=== PATIENT | male | born 1975 | race African-American/Black ===

== ENCOUNTER 2017-09-22 15:08 | Inpatient (IN) | payer OTHER ==
[2017-09-22 16:28] VITALS: BMI 25.8
--- NOTE | 2017-09-22 17:44 | HP ---
CIWA Score - CIWA Score Nausea/Vomitin-No Nausea/No Vomiting Muscle Tremors: 4-Moderate,w/Arms Extend Anxiety: 4-Mod. Anxious/Guarded Agitation: 4-Moderately Restless Paroxysmal Sweats: 3 Orientation: 0-Oriented Tacttile Disturbances: 0-None Auditory Disturbances: 0-None Visual Disturbances: 0-None Headache: 0-None Present CIWA-Ar Total Score: 15 Admission ROS BHS - HPI Chief Complaint: I am here for detox and rehab. Allergies/Adverse Reactions: Allergies Allergy/AdvReac Type Severity Reaction Status Date / Time No Known Allergies Allergy Verified 09/22/17 17:32 History of Present Illness: pt is a 42yr old male with a history of alcohol dependence seeking detox for treatment. Exam Limitations: No Limitations - Ebola screening Have you traveled outside of the country in the last 21 days: No Have you had contact with anyone from an Ebola affected area: No Have you been sick,other than usual withdrawal symptoms: No - Review of Systems Constitutional: Chills, Diaphoresis EENT: reports: No Symptoms Reported Respiratory: reports: No Symptoms reported Cardiac: reports: Syncope GI: reports: Poor Appetite, Poor Fluid Intake : reports: No Symptoms Reported Musculoskeletal: reports: Back Pain Integumentary: reports: Flushing, Sweating Neuro: reports: Tingling, Tremors Endocrine: reports: Excessive Sweating, Flushing Hematology: reports: No Symptoms Reported Psychiatric: reports: Judgement Intact, Mood/Affect Appropiate, Orientated x3, Agitated, Anxious Other Systems: Reviewed and Negative Patient History - Patient Medical History Hx Anemia: No Hx Asthma: No Hx Chronic Obstructive Pulmonary Disease (COPD): No Hx Cancer: No Hx Cardiac Disorders: No Hx Congestive Heart Failure: No Hx Hypertension: No Hx Hypercholesterolemia: No Hx Pacemaker: No HX Cerebrovascular Accident: No Hx Seizures: No Hx Dementia: No Hx Diabetes: No Hx Gastrointestinal Disorders: No Hx Liver Disease: No Hx Genitourinary Disorders: No Hx Sexually Transmitted Disorders: No Hx Renal Disease (ESRD): No Hx Thyroid Disease: No Hx Human Immunodeficiency Virus (HIV): No (negative) Hx Hepatitis C: No (negative) Hx Depression: Yes (not in tx) Hx Suicide Attempt: No (denies ) Hx Bipolar Disorder: No Hx Schizophrenia: No - Patient Surgical History Past Surgical History: No - PPD History Previous Implant?: Yes Documented Results: Negative w/o proof Implanted On Prior [facility] Admission?: No PPD to be Administered?: Yes - Reproductive History Patient is a Female of Child Bearing Age (11 -55 yrs old): No - Smoking Cessation Smoking history: Current every day smoker Have you smoked in the past 12 months: Yes Aproximately how many cigarettes per day: 20 Hx Chewing Tobacco Use: No Initiated information on smoking cessation: Yes 'Breaking Loose' booklet given: 09/22/17 - Substance & Tx. History Hx Alcohol Use: Yes Hx Substance Use: Yes Substance Use Type: Alcohol, Cocaine, Marijuana Hx Substance Use Treatment: No - Substances Abused Alcohol Route: Oral Frequency: Daily Amount used: 12pk beer/ 1 pint liquor Age of first use: 10 Date of Last Use: 09/21/17 Cocaine Route: Smoking Frequency: Daily Amount used: 2 grams Age of first use: 12 Date of Last Use: 09/20/17 Marijuana/Hashish Route: Smoking Frequency: Daily Amount used: 7 grams Age of first use: 10 Date of Last Use: 09/22/17 Family Disease History - Family Disease History Family History: Denies Admission Physical Exam S - Vital Signs Vital Signs: Vital Signs - 24 hr 09/22/17 16:25 Temperature 96.9 F L Pulse Rate 80 Respiratory 18 Rate Blood Pressure 140/96 - Physical General Appearance: Yes: Appropriately Dressed, Moderate Distress, Tremorous, Irritable, Sweating, Anxious HEENTM: Yes: Hearing grossly Normal, Normal Voice Respiratory: Yes: Lungs Clear, Normal Breath Sounds, No Respiratory Distress Neck: Yes: No masses,lesions,Nodules Breast: Yes: Within Normal Limits Cardiology: Yes: Regular Rhythm, Regular Rate, S1, S2 Abdominal: Yes: Normal Bowel Sounds, Non Tender, Soft Genitourinary: Yes: Within Normal Limits Back: Yes: Normal Inspection Musculoskeletal: Yes: full range of Motion, Back pain Extremities: Yes: Normal Capillary Refill, Normal Inspection, Non-Tender, Tremors Neurological: Yes: Fully Oriented, Alert, Normal Response Integumentary: Yes: Normal Color, Diaphoresis Lymphatic: Yes: Within Normal Limits - Diagnostic (1) Alcohol dependence with uncomplicated withdrawal Current Visit: Yes Status: Chronic (2) Nicotine dependence Current Visit: Yes Status: Chronic Qualifiers: Nicotine product type: cigarettes Substance use status: uncomplicated Qualified Code(s): F17.210 - Nicotine dependence, cigarettes, uncomplicated Cleared for Admission [facility] - Detox or Rehab [facility] Level of Care: Medically Managed Detox Regimen/Protocol: Librium [facility] Breath Alcohol Content Breath Alcohol Content: 0 Urine Drug Screen - Results Drug Screen Negative: No Urine Drug Screen Results: THC-Marijuana, ISAC-Cocaine
[2017-09-22] MEDS ORDERED: MAGNESIUM HYDROX 2400MG/30ML ORAL SUSPENSION 30 ML CUP PO PRN (17:45)
[2017-09-22] MEDS ORDERED: chlordiazePOXIDE HCL 25 MG CAPSULE PO PRN (17:45)
[2017-09-22] MEDS ORDERED: MENTHOL/PHENOL 1 EACH UD MM PRN (17:45)
[2017-09-22] MEDS ORDERED: chlordiazePOXIDE HCL 25 MG CAPSULE PO ONE (17:45)
[2017-09-22] MEDS ORDERED: ACETAMINOPHEN 325 MG TABLET (FP) PO PRN (17:45)
[2017-09-22] MEDS ORDERED: LOPERAMIDE HCL 2 MG CAPSULE PO PRN (17:45)
[2017-09-22] MEDS ORDERED: hydrOXYzine PAMOATE 50 MG CAPSULE (FP) PO PRN (17:45)
[2017-09-22] MEDS ORDERED: P-EPHED 60MG/TRIPROLIDI 2.5MG TABLET PO PRN (17:45)
[2017-09-22] MEDS ORDERED: IBUPROFEN 400 MG TABLET (FP) PO PRN (17:45)
[2017-09-22] MEDS ORDERED: MAGNESIUM CITRATE 300 ML BOTTLE PO PRN (17:45)
[2017-09-22] MEDS ORDERED: guaiFENesin/D-METHORPHAN HB 10 ML UNIT-DOSE CUPS PO PRN (17:45)
[2017-09-22] MEDS ORDERED: NICOTINE POLACRILEX 4 MG GUM BUC PRN (17:45)
[2017-09-22] MEDS ORDERED: MAG HYDROX/AL HYDROX/SIMETH 30 ML UNIT-DOSE CUP PO PRN (17:45)
[2017-09-22] MEDS: THIAMINE HCL 100 MG TABLET (FP) PO SCH (22:02)
[2017-09-22] MEDS: chlordiazePOXIDE HCL 25 MG CAPSULE PO SCH (22:03)
[2017-09-22 23:26] LABS: URINE APPEARANCE CLEAR; URINE BILIRUBIN NEGATIVE (NEGATIVE); URINE BLOOD NEGATIVE (NEGATIVE); URINE COLOR YELLOW; URINE GLUCOSE (UA) NEGATIVE (NEGATIVE); URINE KETONE TRACE (NEGATIVE); URINE NITRITE NEGATIVE (NEGATIVE); URINE PROTEIN NEGATIVE (NEGATIVE)
[2017-09-22 23:34] LABS: URINE LEUK ESTERASE 2+ (NEGATIVE)
[2017-09-22 23:37] LABS: EPI CELLS RARE /HPF (FEW); URINE MUCUS MODERATE
[2017-09-23] MEDS: chlordiazePOXIDE HCL 25 MG CAPSULE PO SCH ×4 (05:08→22:14)
[2017-09-23] MEDS: PRENATAL VITAMINS W/ FOLIC ACID TABLET (FP) PO SCH (10:03)
[2017-09-23] MEDS: NICOTINE 21 MG/24 HOURS TOPICAL PATCH TD SCH (10:03)
[2017-09-23 10:15] LABS: HEMATOCRIT 40.2 % (35.4-49); HEMOGLOBIN 12.8 GM/dL (11.7-16.9); MCH 28.8 pg (25.7-33.7); MCHC 31.8 g/dl (32.0-35.9); MEAN CELL VOLUME 90.6 fl (80-96); MEAN PLT VOLUME 7.5 fl (7.5-11.1); PLATELET COUNT 270 K/MM3 (134-434); RBC 4.43 M/mm3 (4.00-5.60); RDW 13.5 % (11.9-15.9); WHITE BLOOD COUNT 5.6 K/mm3 (4.0-10.0)
--- NOTE | 2017-09-23 10:20 | PN ---
[facility] CIWA - CIWA Score Nausea/Vomitin-No Nausea/No Vomiting Muscle Tremors: 4-Moderate,w/Arms Extend Anxiety: 4-Mod. Anxious/Guarded Agitation: 4-Moderately Restless Paroxysmal Sweats: 1-Minimal Palms Moist Orientation: 0-Oriented Tacttile Disturbances: 3-Moderate Itch/Numb/Burn Auditory Disturbances: 0-None Visual Disturbances: 0-None Headache: 0-None Present CIWA-Ar Total Score: 16 BHS Progress Note (SOAP) Subjective: SLIGHT ANXIETY,SWEATS. OTHERWISE REPORTS DETOX PROCEEDING WELL. Objective: 09/23/17 10:19 Vital Signs Temperature 97.2 F L 09/23/17 09:14 Pulse Rate 76 09/23/17 09:14 Respiratory Rate 18 09/23/17 09:14 Blood Pressure 127/82 09/23/17 09:14 O2 Sat by Pulse Oximetry (%) Laboratory Last Values Urine Color Yellow 09/22/17 23:05 Urine Appearance Clear 09/22/17 23:05 Urine pH 6.0 (5.0-8.0) 09/22/17 23:05 Ur Specific [place] 1.017 (1.001-1.035) 09/22/17 23:05 Urine Protein Negative (NEGATIVE) 09/22/17 23:05 Urine Glucose (UA) Negative (NEGATIVE) 09/22/17 23:05 Urine Ketones Trace (NEGATIVE) H 09/22/17 23:05 Urine Blood Negative (NEGATIVE) 09/22/17 23:05 Urine Nitrite Negative (NEGATIVE) 09/22/17 23:05 Urine Bilirubin Negative (NEGATIVE) 09/22/17 23:05 Urine Urobilinogen 2.0 mg/dL (0.2-1.0) 09/22/17 23:05 Ur Leukocyte Esterase 2+ (NEGATIVE) H 09/22/17 23:05 Urine WBC (Auto) 40 /hpf (3-5) 09/22/17 23:05 Urine RBC (Auto) 3 /hpf (0-3) 09/22/17 23:05 Ur Epithelial Cells Rare /HPF (FEW) 09/22/17 23:05 Urine Mucus Moderate 09/22/17 23:05 ABNORMAL UA OTHER LABS PENDING Assessment: 09/23/17 10:20 WITHDRAWAL SX R/O UTI Plan: CONTINUE DETOX REPEAT UA UC. INCREASE PO FLUIDS.
[2017-09-23 10:23] LABS: ALBUMIN 3.3 g/dl (3.4-5.0); ANION GAP 7 (8-16); BILIRUBIN,TOTAL 0.5 mg/dL (0.2-1.0); BLOOD UREA NITROGEN 10 mg/dL (7-18); CALCIUM 8.2 mg/dL (8.5-10.1); CHLORIDE 108 mmol/L (98-107); CO2 27 mmol/L (21-32); CREATININE 0.8 mg/dL (0.7-1.3); GLUCOSE,RANDOM 104 mg/dL (74-106); POTASSIUM 3.7 mmol/L (3.5-5.1); SGOT/AST 19 U/L (15-37); SGPT/ALT 36 U/L (12-78); SODIUM 142 mmol/L (136-145); TOT PROT 5.9 g/dl (6.4-8.2)
[2017-09-23 10:24] LABS: ALK PHOS 61 U/L (45-117)
--- NOTE | 2017-09-23 13:48 | CONSULT ---
[facility] Psychiatric Consult - Data Date of interview: 09/23/17 Admission source: [facility] Identifying data: First admission to [facility] for this 42 y/o AA male seeking detox treatment on for alcohol,cannabis and cocaine dependence.Patient lives with and four children;he is unemployed and supported on food stamps. Substance Abuse History: confirmed by patient in this interview.Details in current [facility] reprt.Smoking history: Current every day smoker. Have you smoked in the past 12 months: Yes. Aproximately how many cigarettes per day: 20. Hx Chewing Tobacco Use: No. Initiated information on smoking cessation: Yes. ' Breaking Loose' booklet given: 09/22/17. - Substance & Tx. History. Hx Alcohol Use: Yes. Hx Substance Use: Yes. Substance Use Type: Alcohol, Cocaine , Marijuana. Hx Substance Use Treatment: No. - Substances Abused. Alcohol. Route: Oral. Frequency: Daily. Amount used: 12pk beer/ 1 pint liquor. Age of first use: 10. Date of Last Use: 09/21/17. Cocaine. Route : Smoking. Frequency: Daily. Amount used: 2 grams. Age of first use: 12. Date of Last Use: 09/20/17. Marijuana/Hashish. Route: Smoking. Frequency: Daily. Amount used: 7 grams. Age of first use: 10. Date of Last Use: 09/22/17 Medical History: Chronic back pain. Psychiatric History: Patient denies. Physical/Sexual Abuse/Trauma History: Patient denies. Additional Comment: Urine Drug Screen Results: THC-Marijuana, ISAC-Cocaine.Noted. Mental Status Exam - Mental Status Exam Alert and Oriented to: Time, Place, Person Cognitive Function: Good Patient Appearance: Well Groomed (tattoos on both foerarms) Mood: Hopeful, Euthymic Affect: Appropriate, Normal Range Patient Behavior: Appropriate, Cooperative Speech Pattern: Clear, Appropriate Voice Loudness: Normal Thought Process: Intact, Goal Oriented Thought Disorder: Not Present Hallucinations: Denies Suicidal Ideation: Denies Homicidal Ideation: Denies Insight/Judgement: Poor Sleep: Poorly, Difficulty falling asleep Appetite: Good Muscle strength/Tone: Normal Gait/Station: Normal Psychiatric Findings - Problem List ([place] 1, 2,3) (1) Alcohol dependence with uncomplicated withdrawal Current Visit: Yes Status: Acute (2) Nicotine dependence Current Visit: Yes Status: Acute Qualifiers: Nicotine product type: cigarettes Substance use status: in withdrawal Qualified Code(s): F17.213 - Nicotine dependence, cigarettes, with withdrawal (3) Cocaine dependence Current Visit: Yes Status: Acute (4) Marihuana dependence Current Visit: Yes Status: Acute - Initial Treatment Plan Initial Treatment Plan: Psychoeducation and support.Orientation to unit.Detoxification in progress.Patient is encouraged to participate in daily therapy groups and community meetings.Aftercare referral will be determined after interview with social media campaign manager.Observation.
[2017-09-23 16:59] LABS: URINE APPEARANCE CLEAR; URINE BILIRUBIN NEGATIVE (NEGATIVE); URINE BLOOD NEGATIVE (NEGATIVE); URINE COLOR STRAW; URINE GLUCOSE (UA) NEGATIVE (NEGATIVE); URINE KETONE NEGATIVE (NEGATIVE); URINE LEUK ESTERASE TRACE (NEGATIVE); URINE NITRITE NEGATIVE (NEGATIVE); URINE PROTEIN NEGATIVE (NEGATIVE); URINE UROBILINOGEN NEGATIVE mg/dL (0.2-1.0)
[2017-09-23] MEDS: THIAMINE HCL 100 MG TABLET (FP) PO SCH (22:14)
[2017-09-24] MEDS: chlordiazePOXIDE HCL 25 MG CAPSULE PO SCH ×3 (05:34→17:24)
[2017-09-24] MEDS: PRENATAL VITAMINS W/ FOLIC ACID TABLET (FP) PO SCH (10:06)
[2017-09-24] MEDS: NICOTINE 21 MG/24 HOURS TOPICAL PATCH TD SCH (10:06)
--- NOTE | 2017-09-24 10:56 | PN ---
[facility] CIWA - CIWA Score Nausea/Vomitin-No Nausea/No Vomiting Muscle Tremors: 3 Anxiety: 3 Agitation: 3 Paroxysmal Sweats: 1-Minimal Palms Moist Orientation: 0-Oriented Tacttile Disturbances: 3-Moderate Itch/Numb/Burn Auditory Disturbances: 0-None Visual Disturbances: 0-None Headache: 0-None Present CIWA-Ar Total Score: 13 S Progress Note (SOAP) Subjective: DECREASED ANXIETY,TREMORS SWEATS WITH TREATMENT, ALERT O X 3,. OOB IN NAD. Objective: 09/24/17 10:54 Vital Signs Temperature 99.1 F 09/24/17 09:04 Pulse Rate 76 09/24/17 09:04 Respiratory Rate 18 09/24/17 09:04 Blood Pressure 130/83 09/24/17 09:04 O2 Sat by Pulse Oximetry (%) Laboratory Last Values WBC 5.6 K/mm3 (4.0-10.0) 09/23/17 07:00 RBC 4.43 M/mm3 (4.00-5.60) 09/23/17 07:00 Hgb 12.8 GM/dL (11.7-16.9) 09/23/17 07:00 Hct 40.2 % (35.4-49) 09/23/17 07:00 MCV 90.6 fl (80-96) 09/23/17 07:00 MCH 28.8 pg (25.7-33.7) 09/23/17 07:00 MCHC 31.8 g/dl (32.0-35.9) L 09/23/17 07:00 RDW 13.5 % (11.9-15.9) 09/23/17 07:00 Plt Count 270 K/MM3 (134-434) 09/23/17 07:00 MPV 7.5 fl (7.5-11.1) 09/23/17 07:00 Sodium 142 mmol/L (136-145) 09/23/17 07:00 Potassium 3.7 mmol/L (3.5-5.1) 09/23/17 07:00 Chloride 108 mmol/L (98-107) H 09/23/17 07:00 Carbon Dioxide 27 mmol/L (21-32) 09/23/17 07:00 Anion Gap 7 (8-16) L 09/23/17 07:00 BUN 10 mg/dL (7-18) 09/23/17 07:00 Creatinine 0.8 mg/dL (0.7-1.3) 09/23/17 07:00 Creat Clearance w eGFR > 60 (>60) 09/23/17 07:00 Random Glucose 104 mg/dL (74-106) 09/23/17 07:00 Calcium 8.2 mg/dL (8.5-10.1) L 09/23/17 07:00 Total Bilirubin 0.5 mg/dL (0.2-1.0) 09/23/17 07:00 AST 19 U/L (15-37) 09/23/17 07:00 ALT 36 U/L (12-78) 09/23/17 07:00 Alkaline Phosphatase 61 U/L (45-117) 09/23/17 07:00 Total Protein 5.9 g/dl (6.4-8.2) L 09/23/17 07:00 Albumin 3.3 g/dl (3.4-5.0) L 09/23/17 07:00 Urine Color Straw 09/23/17 13:15 Urine Appearance Clear 09/23/17 13:15 Urine pH 7.0 (5.0-8.0) 09/23/17 13:15 Ur Specific [place] 1.004 (1.001-1.035) 09/23/17 13:15 Urine Protein Negative (NEGATIVE) 09/23/17 13:15 Urine Glucose (UA) Negative (NEGATIVE) 09/23/17 13:15 Urine Ketones Negative (NEGATIVE) 09/23/17 13:15 Urine Blood Negative (NEGATIVE) 09/23/17 13:15 Urine Nitrite Negative (NEGATIVE) 09/23/17 13:15 Urine Bilirubin Negative (NEGATIVE) 09/23/17 13:15 Urine Urobilinogen Negative mg/dL (0.2-1.0) 09/23/17 13:15 Ur Leukocyte Esterase Trace (NEGATIVE) 09/23/17 13:15 Urine WBC (Auto) 2 /hpf (3-5) 09/23/17 13:15 Urine RBC (Auto) None /hpf (0-3) 09/23/17 13:15 Ur Epithelial Cells Rare /HPF (FEW) 09/22/17 23:05 Urine Mucus Moderate 09/22/17 23:05 RPR Titer Nonreactive (NONREACTIVE) 09/23/17 07:00 HIV 1&2 Antibody Screen Negative 09/23/17 07:00 HIV P24 Antigen Negative 09/23/17 07:00 Laboratory Tests 09/22/17 09/23/17 09/23/17 23:05 07:00 07:00 WBC 5.6 RBC 4.43 Hgb 12.8 Hct 40.2 MCV 90.6 MCH 28.8 MCHC 31.8 L RDW 13.5 Plt Count 270 MPV 7.5 Sodium Potassium Chloride Carbon Dioxide Anion Gap BUN Creatinine Creat Clearance w eGFR Random Glucose Calcium Total Bilirubin AST ALT Alkaline Phosphatase Total Protein Albumin Urine Color Yellow Urine Appearance Clear Urine pH 6.0 Ur Specific [place] 1.017 Urine Protein Negative Urine Glucose (UA) Negative Urine Ketones Trace H Urine Blood Negative Urine Nitrite Negative Urine Bilirubin Negative Urine Urobilinogen 2.0 Ur Leukocyte Esterase 2+ H Urine WBC (Auto) 40 Urine RBC (Auto) 3 Ur Epithelial Cells Rare Urine Mucus Moderate RPR Titer HIV 1&2 Antibody Screen Negative HIV P24 Antigen Negative 09/23/17 09/23/17 09/23/17 07:00 07:00 13:15 WBC RBC Hgb Hct MCV MCH MCHC RDW Plt Count MPV Sodium 142 Potassium 3.7 Chloride 108 H Carbon Dioxide 27 Anion Gap 7 L BUN 10 Creatinine 0.8 Creat Clearance w eGFR > 60 Random Glucose 104 Calcium 8.2 L Total Bilirubin 0.5 AST 19 ALT 36 Alkaline Phosphatase 61 Total Protein 5.9 L Albumin 3.3 L Urine Color Straw Urine Appearance Clear Urine pH 7.0 Ur Specific [place] 1.004 Urine Protein Negative Urine Glucose (UA) Negative Urine Ketones Negative Urine Blood Negative Urine Nitrite Negative Urine Bilirubin Negative Urine Urobilinogen Negative Ur Leukocyte Esterase Trace Urine WBC (Auto) 2 Urine RBC (Auto) None Ur Epithelial Cells Urine Mucus RPR Titer Nonreactive HIV 1&2 Antibody Screen HIV P24 Antigen REPEAT UA IMPROVED. CONTINUE INCREASE PO FLUIDS. Assessment: 09/24/17 10:54 WITHDRAWAL SX Plan: CONTINUE DETOX INCREASE PO FLUIDS.
--- NOTE | 2017-09-24 10:56 | EKG ---
Test Reason : Blood Pressure : / mmHG Vent. Rate : 066 BPM Atrial Rate : 066 BPM P-R Int : 184 ms QRS Dur : 084 ms QT Int : 414 ms P-R-T Axes : 075 061 024 degrees QTc Int : 434 ms NORMAL SINUS RHYTHM NORMAL ECG NO PREVIOUS ECGS AVAILABLE Confirmed by MI HUERTA, MARY ([id number]) on 09/24/2017 10:55:49 AM Referred By: Confirmed By:MARY STARK MD
[2017-09-24] MEDS: THIAMINE HCL 100 MG TABLET (FP) PO SCH (22:24)
[2017-09-24] MEDS: chlordiazePOXIDE 5 MG CAPSULE PO SCH (22:24)
[2017-09-25] MEDS: chlordiazePOXIDE 5 MG CAPSULE PO SCH ×3 (05:37→17:57)
[2017-09-25] MEDS: PRENATAL VITAMINS W/ FOLIC ACID TABLET (FP) PO SCH (10:02)
[2017-09-25] MEDS: NICOTINE 21 MG/24 HOURS TOPICAL PATCH TD SCH (10:03)
--- NOTE | 2017-09-25 10:46 | PN ---
S Progress Note (SOAP) Subjective: SEEN IN DAY ROOM COLORING ART. ALERT O X 3. SLIGHT ANXIETY AND FATIGUE. NO ACUTE DISTRESS. Objective: 09/25/17 10:46 Vital Signs Temperature 97.7 F 09/25/17 09:27 Pulse Rate 76 09/25/17 09:27 Respiratory Rate 18 09/25/17 09:27 Blood Pressure 135/84 09/25/17 09:27 O2 Sat by Pulse Oximetry (%) Laboratory Last Values WBC 5.6 K/mm3 (4.0-10.0) 09/23/17 07:00 RBC 4.43 M/mm3 (4.00-5.60) 09/23/17 07:00 Hgb 12.8 GM/dL (11.7-16.9) 09/23/17 07:00 Hct 40.2 % (35.4-49) 09/23/17 07:00 MCV 90.6 fl (80-96) 09/23/17 07:00 MCH 28.8 pg (25.7-33.7) 09/23/17 07:00 MCHC 31.8 g/dl (32.0-35.9) L 09/23/17 07:00 RDW 13.5 % (11.9-15.9) 09/23/17 07:00 Plt Count 270 K/MM3 (134-434) 09/23/17 07:00 MPV 7.5 fl (7.5-11.1) 09/23/17 07:00 Sodium 142 mmol/L (136-145) 09/23/17 07:00 Potassium 3.7 mmol/L (3.5-5.1) 09/23/17 07:00 Chloride 108 mmol/L (98-107) H 09/23/17 07:00 Carbon Dioxide 27 mmol/L (21-32) 09/23/17 07:00 Anion Gap 7 (8-16) L 09/23/17 07:00 BUN 10 mg/dL (7-18) 09/23/17 07:00 Creatinine 0.8 mg/dL (0.7-1.3) 09/23/17 07:00 Creat Clearance w eGFR > 60 (>60) 09/23/17 07:00 Random Glucose 104 mg/dL (74-106) 09/23/17 07:00 Calcium 8.2 mg/dL (8.5-10.1) L 09/23/17 07:00 Total Bilirubin 0.5 mg/dL (0.2-1.0) 09/23/17 07:00 AST 19 U/L (15-37) 09/23/17 07:00 ALT 36 U/L (12-78) 09/23/17 07:00 Alkaline Phosphatase 61 U/L (45-117) 09/23/17 07:00 Total Protein 5.9 g/dl (6.4-8.2) L 09/23/17 07:00 Albumin 3.3 g/dl (3.4-5.0) L 09/23/17 07:00 Urine Color Straw 09/23/17 13:15 Urine Appearance Clear 09/23/17 13:15 Urine pH 7.0 (5.0-8.0) 09/23/17 13:15 Ur Specific [place] 1.004 (1.001-1.035) 09/23/17 13:15 Urine Protein Negative (NEGATIVE) 09/23/17 13:15 Urine Glucose (UA) Negative (NEGATIVE) 09/23/17 13:15 Urine Ketones Negative (NEGATIVE) 09/23/17 13:15 Urine Blood Negative (NEGATIVE) 09/23/17 13:15 Urine Nitrite Negative (NEGATIVE) 09/23/17 13:15 Urine Bilirubin Negative (NEGATIVE) 09/23/17 13:15 Urine Urobilinogen Negative mg/dL (0.2-1.0) 09/23/17 13:15 Ur Leukocyte Esterase Trace (NEGATIVE) 09/23/17 13:15 Urine WBC (Auto) 2 /hpf (3-5) 09/23/17 13:15 Urine RBC (Auto) None /hpf (0-3) 09/23/17 13:15 Ur Epithelial Cells Rare /HPF (FEW) 09/22/17 23:05 Urine Mucus Moderate 09/22/17 23:05 RPR Titer Nonreactive (NONREACTIVE) 09/23/17 07:00 HIV 1&2 Antibody Screen Negative 09/23/17 07:00 HIV P24 Antigen Negative 09/23/17 07:00 Assessment: 09/25/17 10:47 DECREASED WITHDRAWAL SX Plan: CONTINUE DETOX
[2017-09-25] MEDS: THIAMINE HCL 100 MG TABLET (FP) PO SCH (22:26)
[2017-09-25] MEDS: chlordiazePOXIDE HCL 10 MG CAPSULE PO SCH (22:26)
[2017-09-26] MEDS: chlordiazePOXIDE HCL 10 MG CAPSULE PO SCH ×2 (06:04→10:14)
[2017-09-26 06:27] VITALS: BP 123/76; PULSE 78; TEMP 97.2
[2017-09-26] MEDS: NICOTINE 21 MG/24 HOURS TOPICAL PATCH TD SCH (10:13)
[2017-09-26] MEDS: PRENATAL VITAMINS W/ FOLIC ACID TABLET (FP) PO SCH (10:13)
--- NOTE | 2017-09-26 11:53 | DS ---
[facility] Detox Discharge Summary Admission Date: 09/22/17 Discharge Date: 09/26/17 - History Present History: Alcohol Dependence, Cannabis Dependence, Cocaine Dependence Additional Comments: DETOX COMPLETED. PT REFERRED TO REHAB TODAY. Pertinent Past History: UNREMARKABLE - Physical Exam Results Vital Signs: Vital Signs Temperature 97.2 F L 09/26/17 06:26 Pulse Rate 78 09/26/17 06:26 Respiratory Rate 18 09/26/17 06:26 Blood Pressure 123/76 09/26/17 06:26 O2 Sat by Pulse Oximetry (%) Pertinent Admission Physical Exam Findings: WITHDRAWAL SX Laboratory Last Values WBC 5.6 K/mm3 (4.0-10.0) 09/23/17 07:00 RBC 4.43 M/mm3 (4.00-5.60) 09/23/17 07:00 Hgb 12.8 GM/dL (11.7-16.9) 09/23/17 07:00 Hct 40.2 % (35.4-49) 09/23/17 07:00 MCV 90.6 fl (80-96) 09/23/17 07:00 MCH 28.8 pg (25.7-33.7) 09/23/17 07:00 MCHC 31.8 g/dl (32.0-35.9) L 09/23/17 07:00 RDW 13.5 % (11.9-15.9) 09/23/17 07:00 Plt Count 270 K/MM3 (134-434) 09/23/17 07:00 MPV 7.5 fl (7.5-11.1) 09/23/17 07:00 Sodium 142 mmol/L (136-145) 09/23/17 07:00 Potassium 3.7 mmol/L (3.5-5.1) 09/23/17 07:00 Chloride 108 mmol/L (98-107) H 09/23/17 07:00 Carbon Dioxide 27 mmol/L (21-32) 09/23/17 07:00 Anion Gap 7 (8-16) L 09/23/17 07:00 BUN 10 mg/dL (7-18) 09/23/17 07:00 Creatinine 0.8 mg/dL (0.7-1.3) 09/23/17 07:00 Creat Clearance w eGFR > 60 (>60) 09/23/17 07:00 Random Glucose 104 mg/dL (74-106) 09/23/17 07:00 Calcium 8.2 mg/dL (8.5-10.1) L 09/23/17 07:00 Total Bilirubin 0.5 mg/dL (0.2-1.0) 09/23/17 07:00 AST 19 U/L (15-37) 09/23/17 07:00 ALT 36 U/L (12-78) 09/23/17 07:00 Alkaline Phosphatase 61 U/L (45-117) 09/23/17 07:00 Total Protein 5.9 g/dl (6.4-8.2) L 09/23/17 07:00 Albumin 3.3 g/dl (3.4-5.0) L 09/23/17 07:00 Urine Color Straw 09/23/17 13:15 Urine Appearance Clear 09/23/17 13:15 Urine pH 7.0 (5.0-8.0) 09/23/17 13:15 Ur Specific [place] 1.004 (1.001-1.035) 09/23/17 13:15 Urine Protein Negative (NEGATIVE) 09/23/17 13:15 Urine Glucose (UA) Negative (NEGATIVE) 09/23/17 13:15 Urine Ketones Negative (NEGATIVE) 09/23/17 13:15 Urine Blood Negative (NEGATIVE) 09/23/17 13:15 Urine Nitrite Negative (NEGATIVE) 09/23/17 13:15 Urine Bilirubin Negative (NEGATIVE) 09/23/17 13:15 Urine Urobilinogen Negative mg/dL (0.2-1.0) 09/23/17 13:15 Ur Leukocyte Esterase Trace (NEGATIVE) 09/23/17 13:15 Urine WBC (Auto) 2 /hpf (3-5) 09/23/17 13:15 Urine RBC (Auto) None /hpf (0-3) 09/23/17 13:15 Ur Epithelial Cells Rare /HPF (FEW) 09/22/17 23:05 Urine Mucus Moderate 09/22/17 23:05 RPR Titer Nonreactive (NONREACTIVE) 09/23/17 07:00 HIV 1&2 Antibody Screen Negative 09/23/17 07:00 HIV P24 Antigen Negative 09/23/17 07:00 - Treatment Hospital Course: Detox Protocol Followed, Detoxed Safely, Responded well, Discharged Condition Good, Rehab Referral Accepted - Medication Discharge Medications: Ambulatory Orders NK [No Known Home Medication] 09/22/17 - Diagnosis (1) Alcohol dependence with uncomplicated withdrawal Status: Acute (2) Nicotine dependence Status: Acute Qualifiers: Nicotine product type: cigarettes Substance use status: in withdrawal Qualified Code(s): F17.213 - Nicotine dependence, cigarettes, with withdrawal - AMA Did Patient Leave Against Medical Advice: No
== END 2017-09-26 10:23 | disposition home or self-care (01) | DRG 774 ==
LOC: YASAS 15:08 → Y3N 18:54
PROVIDERS: ADMIT Internal Medicine; ATTEND Internal Medicine
PROC: HZ2ZZZZ Detoxification Services for Substance Abuse Treatment (ICD-10-PCS; principal; 2017-09-22)
DX: F10.230 Alcohol dependence with withdrawal, uncomplicated (principal); F14.20 Cocaine dependence, uncomplicated; F12.20 Cannabis dependence, uncomplicated; F17.213 Nicotine dependence, cigarettes, with withdrawal; M54.5 Low back pain; G89.29 Other chronic pain
CPT/HCPCS: 36415; 80053; 81003; 81015; 85027; 86593; 87086; 87389; 93005; 93010